=== PATIENT | male | born 1980 | race Two or more races ===

== ENCOUNTER 2017-03-23 08:52 | Emergency (ER) | payer BC ==
[~2017-03-23] VITALS: Ht 170.2 cm; Wt 81.6 kg
[2017-03-23 09:45] LABS: CALCIUM 9.6 mg/dL (8.5-10.1); CARBON DIOXIDE 28.7 mmol/L (21-32); CHLORIDE SERUM 101 mmol/L (98-107); CREATININE SERUM 0.9 mg/dL (0.7-1.3); GFR1 > 60 mL/min; GLUCOSE SERUM 85 mg/dL (74-106); POTASSIUM SERUM 4.4 mmol/L (3.5-5.1); SODIUM SERUM 139 mmol/L (136-145)
[2017-03-23 09:53] LABS: AMPHETAMINE QUAL UR NONE DETECTED (NEG <=1000)
[2017-03-23 10:13] LABS: BASOPHIL % 0.5 % (0-2); PLATELET COUNT 269 x10^3mcL (130-400); RED CELL DISTRIBUTION WIDTH 13.5 % (11.5-14.5)
[2017-03-23 10:26] VITALS: BP 154/88
== END 2017-03-23 10:35 | disposition home or self-care (01) ==
LOC: ED 08:52
PROVIDERS: Emergency Medicine
DX: R55 Syncope and collapse (principal); F41.9 Anxiety disorder, unspecified; E78.00 Pure hypercholesterolemia, unspecified; T40.7X5A Adverse effect of cannabis (derivatives), initial encounter; Y92.89 Other specified places as the place of occurrence of the external cause
CPT/HCPCS: J7030; Q0092